=== PATIENT | male | born 1965 | race Two or more races ===

== ENCOUNTER 2024-06-21 10:24 | Inpatient (IN) | payer OTHER ==
[~2024-06-21] VITALS: Ht 175.3 cm; Wt 133.8 kg
[2024-06-21] MEDS ORDERED: ACID REDUCER20 M1 PO (11:09)
[2024-06-21] MEDS ORDERED: COZAAR50 MG PO (11:09)
[2024-06-21] MEDS ORDERED: TOPROL XL25 M1 PO (11:10)
[2024-06-21] MEDS ORDERED: XIGDUO XR 10 M1 EACH PO (11:10)
[2024-06-21] MEDS ORDERED: ALLERGY RELIEF10 M3 PO (11:10)
[2024-06-21] MEDS ORDERED: CLINDAMYCIN PHOSPHATE 150 MG/ML (600mg) IV SCH (11:40)
[2024-06-21] MEDS ORDERED: FAMOtidine 10 MG/ML (4ML VIAL) IV ONE (11:45)
[2024-06-21] MEDS ORDERED: 0.9 % SODIUM CHLORIDE 1,000 ML IV ONE (11:45)
[2024-06-21] MEDS ORDERED: FAMOTIDINE/PF 20 MG/2 ML VIAL ONE (11:59)
[2024-06-21] MEDS ORDERED: CLINDAMYCIN PHOSPHATE 150 MG/ML (300mg) ONE (11:59)
[2024-06-21 13:02] LABS: HEMATOCRIT 38.1 % (39.0-48.0); HEMOGLOBIN 12.3 g/dL (13-16.00); MEAN CELL VOLUME 71.6 fL (80.0-100.00); MEAN CORPUSCULAR HGB CONC 32.2 g/dl (32.0-36.0); RED BLOOD COUNT 5.32 M/uL (4.00-6.00)
[2024-06-21 13:03] LABS: PLATELET COUNT 112 K/uL (150-450); RED CELL DISTRIBUTION WIDTH 20.5 % (11.5-14.5)
[2024-06-21 13:09] LABS: ERYTHROCYTE SEDIMENTATION RATE 66 mm/hr
[2024-06-21 13:29] LABS: PH,URINE 5.5 (5.0-8.0); URINE APPEARANCE Clear; URINE BILIRRUBIN Negative (NEGATIVE); URINE BLOOD Negative; URINE COLOR Dark Yellow; URINE KETONE Trace (NEGATIVE); URINE LEUKOCYTE Negative; URINE NITRATE Negative; URINE PROTEIN Trace (NEGATIVE)
[2024-06-21 13:32] LABS: URINE EPITHELIAL CELLS 6.1 uL (0.0-38.8); URINE RBC 2.1 uL (0.0-20.8)
[2024-06-21 13:35] LABS: URINE CAST 0.76 uL (0.0-1.40); URINE GLUCOSE >=1000 MG/DL (NEGATIVE)
[2024-06-21 13:47] LABS: BILIRUBIN TOTAL 1.29 mg/dL (0.3-1.2); CALCIUM 8.6 mg/dL (8.5-10.1); CREATININE SERUM 0.75 mg/dL (0.70-1.30); GFR 106.59; GLOBULINA 4.1 G/DL (2.4-3.5); POTASSIUM 4.21 mEq/L (3.5-5.1); TOTAL PROTEIN 7.1 gm/dL (6.4-8.2)
[2024-06-21 13:55] LABS: C-REACTIVE PROTEIN 2.9 MG/DL (0.00-0.29)
[2024-06-21] MEDS ORDERED: ACETAMINOPHEN 500 MG GEL..CAP PO PRN (18:30)
[2024-06-21] MEDS ORDERED: VANCOMYCIN HCL 1,000 MG VIAL IV SCH (18:30)
[2024-06-21] MEDS ORDERED: 0.9 % SODIUM CHLORIDE 1,000 ML IV SCH (18:30)
[2024-06-21] MEDS ORDERED: INSULIN LISPRO 1,000 UNIT/10 ML UNITS SUBCUTANEO PRN (18:45)
[2024-06-21] MEDS ORDERED: DEXTROSE 50 % IN WATER 0.5 G/ML DISP.SYRIN IV PRN (18:45)
[2024-06-21] MEDS ORDERED: VANCOMYCIN HCL 1,000 MG VIAL ONE (19:30)
[2024-06-21 20:29] LABS: INR 1.21
[2024-06-21 20:40] LABS: D DIMER 4.74 MG/L; PARTIAL THROMBOPLASTIN TIME 37.7 SECONDS (22.0-34.0)
[2024-06-22] MEDS ORDERED: ENOXAPARIN SODIUM 40 MG/0.4 ML SYRINGE SUBCUTANEO SCH (09:00)
[2024-06-22] MEDS ORDERED: LOSARTAN POTASSIUM 25 MG TABLET PO SCH (09:00)
[2024-06-22] MEDS ORDERED: PANTOPRAZOLE SODIUM 40 MG/VIAL VIAL IV SCH (09:00)
[2024-06-22] MEDS ORDERED: METOPROLOL SUCCINATE 25 MG TAB.SR.24H PO SCH (09:00)
[2024-06-22] MEDS ORDERED: METHYLPREDNISOLONE SOD SUCC 40 MG VIAL IV SCH (12:00)
[2024-06-22] MEDS ORDERED: METHYLPREDNISOLONE SOD SUCC 40 MG VIAL IV STA (13:42)
[2024-06-22] MEDS ORDERED: VANCOMYCIN HCL 5 MG/ML REDILUIDO IV SCH (17:00)
[2024-06-23] MEDS ORDERED: SODIUM CHLORIDE 0.45 % 1,000 ML IV SCH (07:30)
[2024-06-23] MEDS ORDERED: LOSARTAN POTASSIUM 50 MG TABLET PO SCH (09:00)
[2024-06-23 09:04] LABS: HEMATOCRIT 34.9 % (39.0-48.0); HEMOGLOBIN 11.3 g/dL (13-16.00); MEAN CELL VOLUME 70.5 fL (80.0-100.00); MEAN CORPUSCULAR HEMOGLOBIN 22.8 pg (27.00-32.0); MEAN CORPUSCULAR HGB CONC 32.3 g/dl (32.0-36.0); RED BLOOD COUNT 4.95 M/uL (4.00-6.00); RED CELL DISTRIBUTION WIDTH 20.8 % (11.5-14.5)
[2024-06-23 09:07] LABS: PLATELET COUNT 94 K/uL (150-450)
[2024-06-23 10:10] LABS: ALBUMIN 2.5 gm/dL (3.4-5.0); BILIRUBIN TOTAL 0.95 mg/dL (0.3-1.2); CALCIUM 8.2 mg/dL (8.5-10.1); CREATININE SERUM 0.54 mg/dL (0.70-1.30); GFR 155.73; GLOBULINA 3.9 G/DL (2.4-3.5); PHOSPHOROUS 3.2 mg/dL (2.5-4.9); POTASSIUM 4.3 mEq/L (3.5-5.1); TOTAL PROTEIN 6.4 gm/dL (6.4-8.2)
[2024-06-23 10:23] LABS: C-REACTIVE PROTEIN 3.18 MG/DL (0.00-0.29)
[2024-06-23] MEDS ORDERED: METOPROLOL SUCCINATE 50 MG TAB.SR.24H PO SCH (17:00)
[2024-06-23] MEDS ORDERED: MELATONIN 5 MG TABLET PO SCH (21:00)
[2024-06-23] MEDS ORDERED: INSULIN GLARGINE,HUM.REC.ANLOG 1,000 UNITS/10 ML UNITS SUBCUTANEO STA (21:31)
[2024-06-24] MEDS ORDERED: INSULIN LISPRO 1,000 UNIT/10 ML UNITS SUBCUTANEO SCH (08:00)
[2024-06-24] MEDS ORDERED: INSULIN GLARGINE,HUM.REC.ANLOG 1,000 UNITS/10 ML UNITS SUBCUTANEO SCH ×2 (21:00)
[2024-06-24] MEDS ORDERED: METHYLPREDNISOLONE ACETATE 80 MG/ML VIAL IM ONE (21:15)
[2024-06-25 07:09] LABS: HEMATOCRIT 31.6 % (39.0-48.0); HEMOGLOBIN 10.3 g/dL (13-16.00); MEAN CELL VOLUME 71.3 fL (80.0-100.00); MEAN CORPUSCULAR HEMOGLOBIN 23.3 pg (27.00-32.0); MEAN CORPUSCULAR HGB CONC 32.6 g/dl (32.0-36.0); RED BLOOD COUNT 4.42 M/uL (4.00-6.00); RED CELL DISTRIBUTION WIDTH 20.8 % (11.5-14.5)
[2024-06-25 07:22] LABS: PLATELET COUNT 84 K/uL (150-450)
[2024-06-25 07:47] LABS: ALBUMIN 2.6 gm/dL (3.4-5.0); BILIRUBIN TOTAL 0.85 mg/dL (0.3-1.2); C-REACTIVE PROTEIN 1.43 MG/DL (0.00-0.29); CALCIUM 8.2 mg/dL (8.5-10.1); CREATININE SERUM 0.61 mg/dL (0.70-1.30); GFR 135.29; GLOBULINA 3.6 G/DL (2.4-3.5); MAGNESIUM 1.9 mg/dL (1.8-2.4); PHOSPHOROUS 2.9 mg/dL (2.5-4.9); POTASSIUM 4.06 mEq/L (3.5-5.1); TOTAL PROTEIN 6.2 gm/dL (6.4-8.2)
[2024-06-25] MEDS ORDERED: CETIRIZINE HCL 5 MG/5 ML ML PO SCH (09:00)
[2024-06-25] MEDS ORDERED: CLOTRIMAZOLE/BETAMETHASONE DIP 15 GM TUBE TOP SCH (17:00)
[2024-06-25] MEDS ORDERED: KETOROLAC TROMETHAMINE 30 MG VIAL IV PRN (18:15)
[2024-06-25] MEDS ORDERED: MEROPENEM 500 MG/VIAL VIAL IV SCH (20:00)
[2024-06-25] MEDS ORDERED: FAMOtidine 20 MG TABLET PO SCH (21:00)
[2024-06-26] MEDS ORDERED: PETROLATUM,WHITE 85 GM OINT...G. TOP SCH ×2 (09:00→17:00)
[2024-06-26] MEDS ORDERED: RIVAROXABAN 10 MG TAB PO SCH (17:00)
[2024-06-26] MEDS ORDERED: SOD FERRIC GLUC COMPLX/SUCROSE 62.5 MG in 0.9 % SODIUM CHLORIDE 50 ML IV SCH (17:00)
[2024-06-26] MEDS ORDERED: Cyanocobalamin/Mecobalamin 1 TAB.SL SL SCH (17:00)
[2024-06-26] MEDS ORDERED: VANCOMYCIN HCL 5 MG/ML REDILUIDO IV SCH (17:00)
[2024-06-27 08:35] LABS: HEMATOCRIT 33.5 % (39.0-48.0); HEMOGLOBIN 10.9 g/dL (13-16.00); MEAN CELL VOLUME 71.6 fL (80.0-100.00); MEAN CORPUSCULAR HEMOGLOBIN 23.3 pg (27.00-32.0); MEAN CORPUSCULAR HGB CONC 32.5 g/dl (32.0-36.0); RED BLOOD COUNT 4.68 M/uL (4.00-6.00); RED CELL DISTRIBUTION WIDTH 20.5 % (11.5-14.5)
[2024-06-27 08:46] LABS: CALCIUM 9.1 mg/dL (8.5-10.1); CREATININE SERUM 0.52 mg/dL (0.70-1.30); GFR 162.66; MAGNESIUM 1.8 mg/dL (1.8-2.4); PHOSPHOROUS 3.7 mg/dL (2.5-4.9); POTASSIUM 4.52 mEq/L (3.5-5.1)
[2024-06-27 12:09] LABS: PLATELET COUNT 70 K/uL (150-450)
[2024-06-28] MEDS ORDERED: HYDROCHLOROTHIAZIDE 12.5 MG CAPSULE PO NR (11:45)
[2024-06-28] MEDS ORDERED: LOPERAMIDE HCL 2 MG CAPSULE PO SCH (21:48)
[2024-06-29 07:21] LABS: ALBUMIN 2.8 gm/dL (3.4-5.0); BILIRUBIN TOTAL 0.91 mg/dL (0.3-1.2); CREATININE SERUM 0.53 mg/dL (0.70-1.30); GFR 159.12; GLOBULINA 3.8 G/DL (2.4-3.5); MAGNESIUM 1.6 mg/dL (1.8-2.4); PHOSPHOROUS 3.5 mg/dL (2.5-4.9); POTASSIUM 4.85 mEq/L (3.5-5.1); TOTAL PROTEIN 6.6 gm/dL (6.4-8.2)
[2024-06-29] MEDS ORDERED: LOSARTAN/HYDROCHLOROTHIAZIDE 1 UDTAB TABLET PO SCH (09:00)
[2024-06-29] MEDS ORDERED: VANCOMYCIN HCL 5 MG/ML REDILUIDO IV SCH (17:00)
[2024-06-30] MEDS ORDERED: XARELTO10 MG PO (18:37)
[2024-06-30] MEDS ORDERED: LOSARTAN-HCTZ1 EACH PO (18:38)
[2024-06-30] MEDS ORDERED: TOPROL XL50 M1 PO (18:40)
[2024-06-30] MEDS ORDERED: MORGIDOX100 MG PO (18:40)
[2024-06-30] MEDS ORDERED: DERMACINRX THE135 GM TOP (18:41)
== END 2024-06-30 19:03 | disposition home or self-care (01) | DRG 603 ==
LOC: ER 10:25 → SEC-K 19:37 → SURH 19:37
PROVIDERS: General Practice; Internal Medicine Infectious Disease; ADMIT Internal Medicine; ATTEND Internal Medicine
PROC: B44HZZZ Ultrasonography of Bilateral Lower Extremity Arteries (ICD-10-PCS; principal; 2024-06-21)
PROC: B54DZZZ Ultrasonography of Bilateral Lower Extremity Veins (ICD-10-PCS; 2024-06-21)
PROC: BW40ZZZ Ultrasonography of Abdomen (ICD-10-PCS; 2024-06-24)
PROC: B24BZZZ Ultrasonography of Heart with Aorta (ICD-10-PCS; 2024-06-25)
DX: L03.115 Cellulitis of right lower limb (principal); L03.116 Cellulitis of left lower limb; I10 Essential (primary) hypertension; E11.628 Type 2 diabetes mellitus with other skin complications; I73.9 Peripheral vascular disease, unspecified; E11.65 Type 2 diabetes mellitus with hyperglycemia; Z79.4 Long term (current) use of insulin; D64.9 Anemia, unspecified; D69.6 Thrombocytopenia, unspecified

== ENCOUNTER 2025-03-09 12:58 | Inpatient (IN) | payer OTHER ==
[~2025-03-09] VITALS: Ht 152.4 cm; Wt 129.3 kg
[~2025-03-09 12:58] MED LIST: ACID REDUCER20 M1 PO; ALLERGY RELIEF10 M3 PO; COZAAR50 MG PO; DERMACINRX THE135 GM TOP; LOSARTAN-HCTZ1 EACH PO; MORGIDOX100 MG PO; TOPROL XL25 M1 PO; TOPROL XL50 M1 PO; XARELTO10 MG PO; XIGDUO XR 10 M1 EACH PO
--- NOTE | 2025-03-09 13:18 | NUR ---
PTE REFEIE CELULITIS HACE MAS [address] [facility] , SE [place] S/V Y SE UBICA EN ARINA.
--- NOTE | 2025-03-09 14:51 | NUR ---
SE ORIENTA A TPTE SOBRE TX MEDICO ORDENADO POR SHAISTA. SE REALIZA SANNA DE MUESTRAS DE LAB SHANAE ORDEN MEDICA Y BAJO MEDIDAS ASEPTICAS Y ESTERILIES. VENOPUNCION PATENTE MARÍA DE EDEMA Y ERITEMA EN H/L. SE NOTIFICAN ESTUDIOS ORDENADOS.
[2025-03-09 15:30] LABS: PH,URINE 5.5 (5.0-8.0); URINE APPEARANCE Clear; URINE BILIRRUBIN Small (NEGATIVE); URINE BLOOD Negative; URINE COLOR Dark Yellow; URINE KETONE Trace (NEGATIVE); URINE LEUKOCYTE Trace; URINE NITRATE Negative; URINE PROTEIN 30 (NEGATIVE)
[2025-03-09 15:30] LABS: HEMATOCRIT 33.6 % (39.0-48.0); HEMOGLOBIN 10.8 g/dL (13-16.00); MEAN CORPUSCULAR HEMOGLOBIN 22.4 pg (27.00-32.0); PLATELET COUNT 67 K/uL (150-450); RED CELL DISTRIBUTION WIDTH 17.8 % (11.5-14.5)
[2025-03-09 15:34] LABS: URINE BACTERIA 13.4 uL (0.0-1933); URINE EPITHELIAL CELLS 5.6 uL (0.0-38.8); URINE RBC 2.2 uL (0.0-20.8); URINE WBC 3.4 uL (0.0-23.2)
[2025-03-09 15:36] LABS: URINE GLUCOSE >=1000 MG/DL (NEGATIVE)
[2025-03-09 15:48] LABS: ALBUMIN 3.1 gm/dL (3.4-5.0); BILIRUBIN TOTAL 1.64 mg/dL (0.3-1.2); CALCIUM 8.4 mg/dL (8.5-10.1); CREATININE SERUM 0.67 mg/dL (0.70-1.30); GLOBULINA 3.4 G/DL (2.4-3.5); POTASSIUM 4.09 mEq/L (3.5-5.1); TOTAL PROTEIN 6.5 gm/dL (6.4-8.2)
[2025-03-09 15:50] LABS: INR 1.15; PROTHROMBIN TIME 12.4 SECONDS (9.0-11.5)
[2025-03-09 15:57] LABS: C-REACTIVE PROTEIN 7.42 MG/DL (0.00-0.29)
[2025-03-09 16:05] LABS: PARTIAL THROMBOPLASTIN TIME 41.3 SECONDS (22.0-34.0)
[2025-03-09 16:18] LABS: ERYTHROCYTE SEDIMENTATION RATE 77 mm/hr
[2025-03-09] MEDS ORDERED: VANCOMYCIN HCL 1,000 MG VIAL IV ONE (16:45)
[2025-03-09] MEDS ORDERED: VANCOMYCIN HCL 1,000 MG VIAL ONE (17:01)
[2025-03-09] MEDS ORDERED: INSULIN LISPRO 1,000 UNIT/10 ML UNITS SUBCUTANEO PRN (20:00)
[2025-03-09] MEDS ORDERED: ACETAMINOPHEN 500 MG GEL..CAP PO PRN (20:00)
[2025-03-09] MEDS ORDERED: 0.9 % SODIUM CHLORIDE 1,000 ML IV SCH (20:00)
[2025-03-09] MEDS ORDERED: DEXTROSE 50 % IN WATER 0.5 G/ML VIAL IV PRN (20:00)
[2025-03-09] MEDS ORDERED: CIPROFLOXACIN IN 5 % DEXTROSE 200 ML IV SCH (21:00)
[2025-03-09] MEDS ORDERED: TRAMADOL HCL 50 MG TABLET PO PRN (21:15)
[2025-03-09] MEDS ORDERED: CIPROFLOXACIN IN 5 % DEXTROSE 400 MG/200 ML PIGGYBAG IV ONE (21:45)
[2025-03-09 22:35] LABS: FERRITIN 46.2 NG/ML (26-388)
[2025-03-10 02:09] VITALS: BP 164/85; O2SAT 96
[2025-03-10 03:25] VITALS: BP 152/73; O2SAT 99
[2025-03-10] MEDS ORDERED: PANTOPRAZOLE SODIUM 40 MG/VIAL VIAL IV SCH (09:00)
[2025-03-10] MEDS ORDERED: LOSARTAN/HYDROCHLOROTHIAZIDE 1 UDTAB TABLET PO SCH (09:00)
[2025-03-10] MEDS ORDERED: VANCOMYCIN HCL 1,000 MG VIAL IV SCH (09:00)
[2025-03-10] MEDS ORDERED: METOPROLOL SUCCINATE 50 MG TAB.SR.24H PO SCH (09:00)
[2025-03-10] MEDS ORDERED: NIFEDIPINE 30 MG TAB.SA.OSM PO NR (14:00)
[2025-03-10 18:27] VITALS: BP 151/74; O2SAT 99
[2025-03-11 01:04] VITALS: BP 145/70; O2SAT 97
[2025-03-11 06:49] LABS: HEMATOCRIT 31.6 % (39.0-48.0); HEMOGLOBIN 10.4 g/dL (13-16.00); MEAN CORPUSCULAR HGB CONC 32.8 g/dl (32.0-36.0); RED BLOOD COUNT 4.51 M/uL (4.00-6.00); RED CELL DISTRIBUTION WIDTH 19.2 % (11.5-14.5)
[2025-03-11 07:02] LABS: PLATELET COUNT 74 K/uL (150-450)
[2025-03-11 07:06] LABS: ALBUMIN 2.7 gm/dL (3.4-5.0); BILIRUBIN TOTAL 1.73 mg/dL (0.3-1.2); CALCIUM 7.9 mg/dL (8.5-10.1); CHOL HDL RATIO 4.6 (0-5.0); CREATININE SERUM 0.66 mg/dL (0.70-1.30); GFR 123.12; GLOBULINA 3.2 G/DL (2.4-3.5); MAGNESIUM 1.6 mg/dL (1.8-2.4); PHOSPHOROUS 2.9 mg/dL (2.5-4.9); POTASSIUM 4.01 mEq/L (3.5-5.1); TOTAL PROTEIN 5.9 gm/dL (6.4-8.2); TSH 2.28 uIU/mL (0.358-3.74)
[2025-03-11] MEDS ORDERED: BENZONATATE 200 MG CAPSULE PO PRN (07:30)
[2025-03-11] MEDS ORDERED: RINGERS SOLUTION,LACTATED 1,000 ML IV SCH (07:30)
[2025-03-11 08:17] VITALS: BP 133/68; O2SAT 97
[2025-03-11] MEDS ORDERED: NIFEDIPINE 30 MG TAB.SA.OSM PO SCH (09:00)
[2025-03-11 16:30] VITALS: BP 134/68
[2025-03-11] MEDS ORDERED: VANCOMYCIN HCL 1,000 MG VIAL IV SCH (21:00)
[2025-03-12 02:49] VITALS: BP 128/61; O2SAT 96
[2025-03-12 08:00] VITALS: BP 136/68; O2SAT 18
[2025-03-12 17:17] VITALS: BP 146/76
[2025-03-13 01:39] VITALS: BP 130/60
[2025-03-13] MEDS ORDERED: INSULIN NPH HUM/REG INSULIN HM 1,000 UNIT/10 ML UNITS SUBCUTANEO SCH (08:00)
[2025-03-13 09:48] VITALS: BP 130/71; O2SAT 96
[2025-03-13 17:02] VITALS: BP 129/75
[2025-03-14 01:12] VITALS: BP 128/73
[2025-03-14 07:29] LABS: BASO % 0.9 % (0.1-1.2); EOS # 0.18 (0.04-0.54); EOS % 5.3 % (0.7-7.0); HEMATOCRIT 30.6 % (40.1-51.0); HEMOGLOBIN 10.1 g/dL (13.7-17.5); LYMPH # 1.04 (1.18-3.74); LYMPH % 30.6 % (19.3-53.1); MEAN CORPUSCULAR HEMOGLOBIN 22.9 pg (25.6-32.2); MONO # 0.53 (0.24-0.82); NEUT # 1.61 (1.56-6.13); NEUT % 47.3 % (34.0-71.1); RED BLOOD COUNT 4.42 M/uL (4.63-6.08); RED CELL DISTRIBUTION WIDTH 18.5 % (11.6-14.4)
[2025-03-14 07:40] LABS: ALBUMIN 2.6 gm/dL (3.4-5.0); BILIRUBIN TOTAL 1.01 mg/dL (0.3-1.2); CREATININE SERUM 1.15 mg/dL (0.70-1.30); GFR 64.87; GLOBULINA 3.3 G/DL (2.4-3.5); MAGNESIUM 1.9 mg/dL (1.8-2.4); POTASSIUM 4.01 mEq/L (3.5-5.1); TOTAL PROTEIN 5.9 gm/dL (6.4-8.2)
[2025-03-14 07:49] LABS: MONO % 15.6 % (4.7-12.5); PLATELET COUNT 78 K/uL (163-369)
[2025-03-14 09:37] VITALS: BP 149/69; O2SAT 97
[2025-03-14 15:30] VITALS: BP 129/69; O2SAT 97
[2025-03-14] MEDS ORDERED: ROSUVASTATIN CALCIUM 20 MG TABLET PO NR (20:00)
[2025-03-15 01:27] VITALS: BP 132/80; O2SAT 99
[2025-03-15] MEDS ORDERED: levoFLOXacin IN DEXTROSE 5 % 5 MG/ML PIGGYBAG IV SCH (09:00)
[2025-03-15] MEDS ORDERED: ASPIRIN 81 MG TABLET.EC PO SCH (09:00)
[2025-03-15] MEDS ORDERED: PANTOPRAZOLE SODIUM 40 MG TABLET.DR PO SCH (09:00)
[2025-03-15 09:49] VITALS: BP 145/67; O2SAT 98
[2025-03-15] MEDS ORDERED: GUAIFEN/DEXTROMETHORPHAN/PE 10 ML BLIST.PACK PO PRN (14:00)
[2025-03-15] MEDS ORDERED: GABAPENTIN 300 MG CAPSULE PO NR (14:30)
[2025-03-15] MEDS ORDERED: INSULIN NPH HUM/REG INSULIN HM 1,000 UNIT/10 ML UNITS SUBCUTANEO SCH (17:00)
[2025-03-15] MEDS ORDERED: ROSUVASTATIN CALCIUM 20 MG TABLET PO SCH (17:00)
[2025-03-15] MEDS ORDERED: GABAPENTIN 300 MG CAPSULE PO SCH (17:00)
[2025-03-15 17:19] VITALS: BP 129/70; O2SAT 98
[2025-03-16 00:35] VITALS: BP 149/69; O2SAT 98
[2025-03-16 09:59] VITALS: BP 139/81; O2SAT 97
[2025-03-16] MEDS ORDERED: INTESTINEX680 M1 PO (10:11)
[2025-03-16] MEDS ORDERED: LOSARTAN-HCTZ1 EACH PO (10:11)
[2025-03-16] MEDS ORDERED: LEVOFLOXACIN750 MG PO (10:11)
[2025-03-16] MEDS ORDERED: METFORMIN HCL1000 M2 PO (10:11)
[2025-03-16] MEDS ORDERED: ROSUVASTATIN CA20 MG PO (10:12)
[2025-03-16] MEDS ORDERED: TOPROL XL50 M1 PO (10:12)
[2025-03-16] MEDS ORDERED: NIFEDIPINE ER30 M1 PO (10:12)
[2025-03-16] MEDS ORDERED: GABAPENTIN300 MG PO (10:12)
[2025-03-16] MEDS ORDERED: ST. JOSEPH ASPI81 M2 PO (10:12)
[2025-03-16] MEDS ORDERED: PANTOPRAZOLE SO40 MG PO (10:13)
== END 2025-03-16 11:57 | disposition home or self-care (01) | DRG 580 ==
LOC: ER 13:17 → MEDJ 23:59 → MEDI 23:59
PROVIDERS: General Practice; Internal Medicine; Internal Medicine Hematology & Oncology; ADMIT Internal Medicine; ATTEND Internal Medicine
PROC: B54DZZZ Ultrasonography of Bilateral Lower Extremity Veins (ICD-10-PCS; 2025-03-09)
PROC: B44HZZZ Ultrasonography of Bilateral Lower Extremity Arteries (ICD-10-PCS; 2025-03-09)
PROC: 0JDR0ZZ Extraction of Left Foot Subcutaneous Tissue and Fascia, Open Approach (ICD-10-PCS; principal; 2025-03-16)
DX: L03.116 Cellulitis of left lower limb (principal); L02.612 Cutaneous abscess of left foot; D69.6 Thrombocytopenia, unspecified; I70.202 Unspecified atherosclerosis of native arteries of extremities, left leg; I10 Essential (primary) hypertension; E11.9 Type 2 diabetes mellitus without complications; Z79.4 Long term (current) use of insulin; B96.89 Other specified bacterial agents as the cause of diseases classified elsewhere; E11.51 Type 2 diabetes mellitus with diabetic peripheral angiopathy without gangrene; E11.65 Type 2 diabetes mellitus with hyperglycemia; D64.9 Anemia, unspecified; I87.2 Venous insufficiency (chronic) (peripheral); E66.9 Obesity, unspecified; D50.9 Iron deficiency anemia, unspecified